=== PATIENT | female | born 1985 | race Caucasian/White ===

== ENCOUNTER 2019-01-22 10:35 | Emergency (ER) | payer BC ==
[~2019-01-22] VITALS: Ht 152.4 cm; Wt 73.5 kg
[2019-01-22 10:43] VITALS: BP 130/78
[2019-01-22 11:57] VITALS: BP 129/88
--- NOTE | 2019-01-22 11:58 | NUR ---
Patient discharged with v/s stable. Written and verbal after care instructions given and explained. Patient alert, oriented and verbalized understanding of instructions. Wheel Chair Assisted with to home. All questions addressed prior to discharge. ID band removed. Patient advised to follow up with PMD. Rx of naprosxen given. Patient educated on indication of medication including possible reaction and side effects. Opportunity to ask questions provided and answered.
== END 2019-01-22 11:58 | disposition home or self-care (01) ==
LOC: MED 10:35
DX: S43.401A Unspecified sprain of right shoulder joint, initial encounter (principal); W05.0XXA Fall from non-moving wheelchair, initial encounter; Y93.89 Activity, other specified; Y92.89 Other specified places as the place of occurrence of the external cause; Y99.8 Other external cause status
CPT/HCPCS: 73030; 81002; 99283; Q0092

== ENCOUNTER 2020-12-21 10:09 | Emergency (ER) | payer BC ==
[~2020-12-21] VITALS: Ht 152.4 cm; Wt 73.5 kg
[2020-12-21 10:18] VITALS: BP 128/91
--- NOTE | 2020-12-21 10:20 | NUR ---
PT taken to bed 02 via W/C accompanied by caregiver.
--- NOTE | 2020-12-21 10:32 | NUR ---
35 Y/O F BIB PARENTS FROM HOME, PATIENT PRESENTS TO ED WITH BILATERAL LEG SWELLING THAT STARTED LAST WEEK. UPON INSPECTION, SKIN APPEARS PINK/DRY/EDEMATOUS, NON PITTING, CAP REFILL <3. DENIES N/V/D; AAOX4 PT USES WHEELCHAIR, UNABLE TO AMBULATE; LUNGS CLEAR BL; HR EVEN AND REGULAR; PT DENIES ANY FEVER, CP, SOB, OR COUGH AT THIS TIME; PATIENT STATES PAIN OF 0/10 AT THIS TIME; VSS; ER MD MADE AWARE OF PT STATUS. PMH: CEREBRAL PALSY REAGAN
[2020-12-21] MEDS ORDERED: TERB250T55 PO (10:36)
[2020-12-21] MEDS ORDERED: DIT5 PO (10:36)
[2020-12-21] MEDS ORDERED: [UNRECOGNIZED DRUG - CODE] PO (10:36)
[2020-12-21] MEDS ORDERED: DIPH50CA69 PO (10:36)
--- NOTE | 2020-12-21 11:35 | NUR ---
US AT BEDSIDE.
[2020-12-21 11:42] LABS: ALBUMIN 3.7 g/dL (3.4-5.0); ANION GAP 12.6 (8-16); CARBON DIOXIDE 25.8 mmol/L (21-32); CREATININE 0.8 mg/dL (0.6-1.3); POTASSIUM 4.4 mmol/L (3.5-5.1); TOTAL BILIRUBIN 0.4 mg/dL (0.0-1.0)
[2020-12-21] MEDS ORDERED: FURO-572 PO (13:17)
--- NOTE | 2020-12-21 13:30 | NUR ---
Patient discharged with v/s stable. Written and verbal after care instructions given and explained. Patient alert, oriented and verbalized understanding of instructions. Wheel Chair Assisted with by caregiver. All questions addressed prior to discharge. ID band removed. Patient advised to follow up with PMD. Rx of Lasix given. Patient educated on indication of medication including possible reaction and side effects. Opportunity to ask questions provided and answered.
[2020-12-21 13:31] VITALS: BP 128/91
== END 2020-12-21 13:30 | disposition home or self-care (01) ==
LOC: MED 10:09
DX: R60.0 Localized edema (principal); Z79.899 Other long term (current) drug therapy
CPT/HCPCS: 36415; 71045; 80053; 93970; 99285